=== PATIENT | female | born 2000 | race Caucasian/White ===

== ENCOUNTER 2022-07-09 09:37 | Emergency (ER) | payer BC, MEDICAID, SELFPAY ==
[2022-07-09 09:41] VITALS: BP 145/92; PULSE 79; RESP 14; TEMP 36.2; O2SAT 99; BMI 33.3
--- NOTE | 2022-07-09 10:11 | EX.ED.DYSGE1 ---
HPI History of Present Illness Chief Complaint: Suicidal Narrative Narrative: Patient presents with depression and anxiety and situational problems, apparently there was a big argument with her ex-boyfriend about a week ago and a week ago she became suicidal and had suicidal thoughts. She had overdosed on some medications yesterday when she woke up apparently she was sad about the fact that she woke up and did not . She no longer has suicidal thoughts at this time. She does feel depressed. 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 She has no thought of hurting herself but she does cry sometimes and feels depressed. PFSH PFSH Home Medications benztropine 0.5 mg tablet 0.5 mg PO BID 07/09/22 [History Last Taken Unknown] buspirone 30 mg tablet 30 mg PO BID 07/09/22 [History Last Taken Unknown] cariprazine 4.5 mg capsule (Vraylar) 4.5 mg PO QHS 07/09/22 [History Last Taken Unknown] topiramate 200 mg tablet 200 mg PO QHS 07/09/22 [History Last Taken Unknown] trazodone 150 mg tablet 150 mg PO QHS PRN Insomnia 07/09/22 [History Last Taken Unknown] Allergy/AdvReac Type Severity Reaction Status Date / Time morphine Allergy Anaphylaxis Verified 07/09/22 09:41 ROS ROS ED ROS Narrative Past medical history: Reviewed Medications: Reviewed Social history: As in HPI Review of systems: All systems negative except as indicated General: No fever Eyes: No visual changes ENT: No upper airway congestion, normal voice Neck: No neck pain Cardiovascular: No chest pain Respiratory: No shortness of breath or cough Gastrointestinal: No abdominal pain, nausea vomiting or diarrhea Genitourinary: No dysuria Musculoskeletal: Denies myalgias no difficulty with ambulation Skin: No rash Neurological: No memory loss, confusion or any focal weakness Psych: As in HPI Hematologic: No easy bleeding or easy bruising EXAM Physical Exam Narrative Exam Narrative: Physical exam General: Well nourished, Well developed, she is comfortable in bed Head: Normocephalic, Atraumatic Eyes: Conjunctiva not pale ENT: Moist mucous membranes Neck: Supple, Nontender, No lymphadenopathy Cardiovascular: Regular rate, Regular rhythm Respiratory: No distress, CTA bilaterally Abdomen: Soft, Nontender, Nondistended Back: Nontender, Normal Inspection. Negative for: CVA tenderness Extremities: Nontender, No edema Skin: Normal color, No rash Neurological: Alert, Normal Strength, Normal Sensation Psychological: Sad affect. She is lucid coherent quite reasonable. No delusions, normal train thought. She denies suicidal or homicidal ideations Const Vital Signs: 07/09/22 09:41 Temperature 97.2 F L Temperature Source Temporal Pulse Rate 79 Respiratory Rate 14 Blood Pressure 145/92 H Blood Pressure Mean 109 Pulse Ox 99 Oxygen Delivery Method Room Air MDM MDM MDM Narrative Medical decision making narrative: Because the patient had significant overdose and is still depressed the patient will need to be psychiatrically admitted. We are working on transferring to a psychiatric facility Lab Data Labs: Laboratory Results - last 24 hr 07/09/22 07/09/22 07/09/22 10:00 10:00 10:00 WBC 9.1 RBC 4.83 Hgb 13.6 Hct 41.5 MCV 85.9 MCH 28.2 MCHC 32.8 RDW Std Deviation 42.7 RDW Coeff of Dayron 13.8 Plt Count 256 MPV 10.8 Immature Gran % (Auto) 0.700 Neut % (Auto) 74.0 H Lymph % (Auto) 19.4 Carson % (Auto) 4.6 Eos % (Auto) 0.9 Baso % (Auto) 0.4 Absolute Neuts (auto) 6.7 Absolute Lymphs (auto) 1.76 Nucleated RBC % 0 Sodium 141 Potassium 3.2 L Chloride 112 H Carbon Dioxide 22.0 Anion Gap 7 BUN 13 Creatinine 0.98 Estim Creat Clear Calc 86.82 Est GFR (MDRD) Af Amer 90 Est GFR (MDRD) Non-Af 74 BUN/Creatinine Ratio 13.2 Glucose 98 Calcium 8.3 L Serum , Qual NEGATIVE Discharge Plan Triage Chief Complaint: Suicidal ED Provider: Apolinar oGnzáles Dx/Rx/DC Orders Clinical Impression: Suicidal ideations, Depression Prescriptions: No Action benztropine 0.5 mg Tablet 0.5 mg PO BID trazodone 150 mg Tablet 150 mg PO QHS PRN (Reason: Insomnia) buspirone 30 mg Tablet 30 mg PO BID topiramate 200 mg Tablet 200 mg PO QHS Vraylar 4.5 mg Capsule 4.5 mg PO QHS Primary Care Provider: Care Physician,No Primary Referrals: Care Physician,No Primary [Primary Care Provider] - Disposition Disposition: Psychiatric Hospital or Unit
[2022-07-09 10:27] LABS: Absolute Lymphocyte Count 1.76 X10^3/uL (0.83-4.51); Absolute Neutrophil Count 6.7 X10^3/uL (2.0-7.7); Basophil# 0.04 X10^3/uL; Basophil% 0.4 % (0-1); Eosinophil# 0.08 X10^3/uL; Eosinophils% 0.9 % (0-5); Hematocrit 41.5 % (37-47); Hemoglobin 13.6 g/dL (12.0-15.0); Lymphocyte # 1.76 X10^3/ul (0.83-4.51); Lymphocyte % 19.4 % (19-41); Mean Corp Hgb Conc 32.8 g/dL (32-36); Mean Corpuscular Hgb 28.2 pg (27.0-32.0); Mean Corpuscular Volume 85.9 fL (81-99); Mean Platelet Vol. 10.8 fl (6.2-12.0); Monocyte# 0.42 X10^3/uL; Monocyte% 4.6 % (0-10); NRBC Flagged by Analyzer 0 % (0-5); Neutrophil # 6.72 X10^3/uL (2.7-7.7); Platelet Count 256 K/mm3 (150-450); RBC Distribution Width CV 13.8 % (11.6-14.6); RBC Distribution Width SD 42.7 fl (35.1-43.9); Red Blood Count 4.83 M/mm3 (4.2-5.4); White Blood Count 9.1 K/mm3 (4.4-11.0)
[2022-07-09 10:39] LABS: Anion Gap 7 (5-15); BUN 13 mg/dL (7-18); BUN/Creat Ratio 13.2 RATIO (10-20); Calcium,Total 8.3 mg/dL (8.5-10.1); Chloride 112 mmol/L (98-107); Creatinine, Serum 0.98 mg/dL (0.55-1.02); EST Glomerular Filtration Rate 74 mL/min (>60); Est Glom Filt Rate - Afr Amer 90 mL/min (>60); Estimated Creatinine Clearance 86.82 ml/min; Glucose 98 mg/dL (74-106); Potassium 3.2 mmol/L (3.5-5.1); Sodium Level 141 mmol/L (136-145)
[2022-07-09 11:00] LABS: Internal QC Validated? YES +Cl - CLEAR BKGD; Pregnancy, Serum, hCG Quali. NEGATIVE Negative
[2022-07-09 11:02] VITALS: RESP 16
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
[2022-07-09 12:30] VITALS: RESP 16
[2022-07-09 12:46] LABS: Amphetamine Urine VISTA NEGATIVE (<1000 ng/mL); Barbiturate Urine VISTA NEGATIVE (< 200 ng/mL); Benzodiazepine Urine VISTA NEGATIVE (< 200 ng/mL); Cocaine Urine VISTA NEGATIVE (< 300 ng/mL); Ecstacy Urine VISTA NEGATIVE (< 500 ng/mL); Methadone Urine VISTA NEGATIVE (< 300 ng/mL); PCP Urine VISTA NEGATIVE (< 25 ng/mL); THC Urine VISTA NEGATIVE (< 50 ng/mL); Vista UDS pH Range 6
[2022-07-09 13:08] VITALS: RESP 16
--- NOTE | 2022-07-09 13:21 | CM.ED ---
Patient accepted at [facility]. Kyle slip completed. Accepting MD is Arturo. [facility]. Room 315A. RN to RN [phone] and ask for [facility]. Patient updated. Plan: [facility]. GRACE faxed Kyle Slip to [facility]
[2022-07-09 15:06] VITALS: BP 137/72; PULSE 76; RESP 18; O2SAT 98
[2022-07-09 15:07] VITALS: BP 137/72; PULSE 76; RESP 18; TEMP 36.8; O2SAT 98
== END 2022-07-09 15:16 ==
PROVIDERS: Emergency Provider Emergency Medicine; Visit Provider Emergency Medicine
DX: R45.851 Suicidal ideations (principal); F41.9 Anxiety disorder, unspecified; F32.A Depression, unspecified
CPT/HCPCS: 36415; 80048; 80307; 82077; 84703; 85025; 87811; 99284